=== PATIENT | male | born 1950 | race Caucasian/White ===

== ENCOUNTER → 2021-11-30 09:14 | Outpatient (CLI) | payer MEDICARE, SELFPAY ==
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
== END ==
PROVIDERS: PCP Internal Medicine Adolescent Medicine; Visit Provider Internal Medicine Adolescent Medicine
DX: M79.641 Pain in right hand (principal)
CPT/HCPCS: 73130

== ENCOUNTER → 2023-06-25 08:51 | Outpatient (CLI) | payer MEDICARE, SELFPAY ==
--- NOTE | 2023-06-25 08:57 | US_ITS ---
FINAL REPORT CLINICAL HISTORY: H/O TOBACCO USE COMPARISON: None FINDINGS: Sonographic images were obtained of the abdominal aorta. The abdominal aorta measures up to 2 cm in greatest dimensions. The common iliac arteries are within normal limits. There is mild plaque noted in the abdominal aorta. IMPRESSION: No evidence of aortic aneurysm. Reviewed, Interpreted and Dictated by Rodríguez López MD Transcribed by Xiomara Prince Authenticated and [facility]
== END ==
LOC: RAD 08:52
PROVIDERS: PCP Internal Medicine Adolescent Medicine; Visit Provider Internal Medicine Adolescent Medicine
DX: Z87.891 Personal history of nicotine dependence (principal)
CPT/HCPCS: 76705